=== PATIENT | male | born 1980 | race Caucasian/White ===

== ENCOUNTER 2019-04-04 10:33 | Emergency (ER) | payer OTHER ==
--- NOTE | 2019-04-04 11:06 | UC ---
Respiratory Complaint HPI - HPI Summary HPI Summary: 38 yo male presents with cough. He tells me that over the last 2 weeks he has had sinus congestion, productive cough, and sore throat. His sore throat and sinus congestion have resolved without treatment and his cough is no longer productive, but he is still having a dry cough and notices a sharp pain to his left ribs when he coughs. The site is also tender to touch. He has not been taking any medicine OTC. He does not smoke. Denies fever, chills, SOB, chest pain, n/v. - History of Current Complaint Stated Complaint: COUGH AND CHEST CONGESTION Time Seen by Provider: 04/04/19 11:06 Hx Obtained From: Patient Onset/Duration: Gradual Onset Severity Initially: Moderate Severity Currently: Moderate Pain Intensity: 4 Pain Scale Used: 0-10 Numeric Character: Cough: Nonproductive - Allergies/Home Medications Allergies/Adverse Reactions: Allergies Allergy/AdvReac Type Severity Reaction Status Date / Time No Known Allergies Allergy Verified 04/04/19 11:09 Home Medications: Home Medications Ibuprofen TAB* [Advil TAB*] 200 mg PO Q6H PRN 04/04/19 [History Confirmed ] PMH/Surg Hx/FS Hx/Imm Hx - Additional Past Medical History Additional PMH: None - Surgical History Surgical History: None - Family History Known Family History: Positive: Non-Contributory - Social History Occupation: Employed Full-time Lives: With Family Alcohol Use: Occasionally Substance Use Type: None Smoking Status (MU): Never Smoked Tobacco Review of Systems All Other Systems Reviewed And Are Negative: No Constitutional: Positive: Negative Skin: Positive: Negative Eyes: Positive: Negative ENT: Positive: Negative Respiratory: Positive: Cough Cardiovascular: Positive: Negative Gastrointestinal: Positive: Negative Neurological: Positive: Negative Psychological: Positive: Negative Physical Exam - Summary Physical Exam Summary: GENERAL: NAD. WDWN. No pain distress. SKIN: No rashes, sores, lesions, or open wounds. HEENT: Head: AT/NC Eyes: EOM intact. Conjunctiva clear without inflammation or discharge. Ears: Hearing grossly normal. TMs intact, no bulging, erythema, or edema. Nose: Nasal mucosa pink and moist. NTTP maxillary and frontal sinus. Throat: Posterior oropharynx without exudates, erythema, or tonsillar enlargement. Uvula midline. NECK: Supple. Nontender. No lymphadenopathy. CHEST: CTAB. No accessory muscle use. Breathing comfortably and in no distress. Mild TTP about left anteromedial 7th-8thth rib. CV: RRR. Pulses intact. Cap refill <2seconds NEURO: Alert. PSYCH: Age appropriate behavior. Triage Information Reviewed: Yes Vital Signs: Vital Signs: Temp Pulse Resp BP Pulse Ox 98.0 F 86 16 143/90 98 04/04/19 11:03 04/04/19 11:03 04/04/19 11:03 04/04/19 11:03 04/04/19 11:03 Vital Signs Reviewed: Yes Diagnostics - Radiology CXR Radiology Interpretation Completed By: Radiologist Summary of Radiographic Findings: IMPRESSION: #. Probable nondisplaced LEFT sixth rib fracture. #. Negative for pneumothorax. #. Negative for pneumonia. Respiratory Course/Dx - Course Course Of Treatment: Xr as above. Discussed results with pt. Advised to rest, ice/heat, and take ibuprofen for discomfort. - Differential Dx/Diagnosis Provider Diagnosis: Rib fracture Discharge ED - Sign-Out/Discharge Documenting (check all that apply): Patient Departure All imaging exams completed and their final reports reviewed: Yes - Discharge Plan Condition: Stable Disposition: HOME Patient Education Materials: Rib Fracture (ED) Referrals: No Primary Care Phys,NOPCP [Primary Care Provider] - Additional Instructions: If you develop a fever, shortness of breath, chest pain, new or worsening symptoms - please call your PCP or go to the ED immediately. Your blood pressure was high at todays visit. Please see your primary provider within 4 weeks for recheck and re-evaluation. 1) Rest and apply ice/heat to the area to decrease pain 2) May take ibuprofen 600mg every 6 hours if needed for pain - Billing Disposition and Condition Condition: STABLE Disposition: Home
[2019-04-04 11:09] VITALS: BP 143/90
== END 2019-04-04 11:50 | disposition home or self-care (01) ==
LOC: UCEAST 10:33
DX: S22.32XA Fracture of one rib, left side, initial encounter for closed fracture (principal); R05 Cough; X58.XXXA Exposure to other specified factors, initial encounter; Y92.9 Unspecified place or not applicable
CPT/HCPCS: 71046; 99201; G0463